=== PATIENT | male | born 1970 | race Hispanic/Latino ===

== ENCOUNTER 2021-07-21 22:35 | Emergency (ER) | payer SELFPAY ==
[~2021-07-21] VITALS: Ht 182.9 cm; Wt 131.5 kg
[2021-07-21 23:24] LABS: APPEARANCE,URINE Clear (CLEAR); BILIRUBIN,URINE Negative (NEGATIVE); COLOR,URINE Yellow (YELLOW); GLUCOSE, URINE (UA) 500 mg/dL (NEGATIVE); KETONES,URINE Trace mg/dL (NEGATIVE); LEUKOCYTE ESTERASE ,URINE Moderate (NEGATIVE); NITRATE,URINE Negative (NEGATIVE); OCCULT BLOOD,URINE Trace (NEGATIVE); PH,URINE 5.5 (5.0-8.0); PROTEIN,URINE Negative (NEGATIVE)
[2021-07-21 23:46] LABS: BACTERIA,URINE Few /HPF (None Seen); MUCUS,URINE Rare LPF (None Seen); SQUAMOUS EPITHELIAL CELL,UR Moderate /HPF (0-2); YEAST,URINE BUDDING None Seen /HPF (None Seen)
[2021-07-21] MEDS ORDERED: LIDOCAINE HCL 2% JELLY 5 ML ONE (23:55)
[2021-07-21] MEDS ORDERED: MORPHINE 4 MG SYG ONE (23:56)
[2021-07-21] MEDS ORDERED: ONDANSETRON ODT 4MG TAB ONE (23:56)
[2021-07-22] MEDS ORDERED: LIDOCAINE HCL 2% JELLY 5 ML TP SCH
[2021-07-22] MEDS ORDERED: ONDANSETRON ODT 4MG TAB SL ONE
[2021-07-22 00:29] LABS: CREATININE 1.2 mg/dL (0.5-1.5); POTASSIUM 4.1 mmol/L (3.5-5.1)
[2021-07-22 00:33] LABS: ALBUMIN 3.2 g/dL (3.5-5.0); BILIRUBIN,TOTAL 0.3 mg/dL (0.2-1.0); CRP QUANTITATIVE 7.2 mg/L (0.00-9.0); MAGNESIUM 1.9 mg/dL (1.80-2.40); TOTAL PROTEIN, SERUM 6.9 g/dL (6.0-8.3)
[2021-07-22 00:40] LABS: BASOPHILS % (AUTO) 0.7 % (0.0-5.0); EOSINOPHILS % (AUTO) 6.4 % (0.0-8.0); HEMATOCRIT 43.3 % (42-54); MEAN CORPUSCULAR HEMOGLOBIN 29.3 pg (27.0-33.0); MEAN CORPUSCULAR HGB CONC 33.3 g/dL (32.0-36.0); MEAN CORPUSCULAR VOLUME 88.2 fL (79-99); MONOCYTES % (AUTO) 6.7 % (3.0-13.0); NEUTROPHILS % (AUTO) 53.9 % (40.0-77.0); PLATELET COUNT (AUTO) 231 K/uL (130-400); RED BLOOD CELL COUNT(AUTO) 4.91 MIL/uL (4.50-6.20); RED CELL DISTRIBUTION WIDTH 13.5 % (11.0-15.5); WHITE BLOOD COUNT (AUTO) 7.5 K/uL (4.8-10.8)
[2021-07-22] MEDS ORDERED: MORPHINE 4 MG SYG ONE (01:30)
[2021-07-22] MEDS ORDERED: MORPHINE 4 MG SYG IV ONE ×2 (01:30)
[2021-07-22] MEDS ORDERED: FLUCONAZOLE 400 MG/NS 200 ML 200 ML IV STA (01:43)
[2021-07-22] MEDS ORDERED: LEVOFLOXACIN 750 MG TABLET PO SCH (02:00)
[2021-07-22] MEDS ORDERED: LEVO750T46 PO (02:16)
[2021-07-22] MEDS ORDERED: FLUC200T PO (02:16)
[2021-07-22] MEDS ORDERED: LEVOFLOXACIN 500 MG TABLET ONE (02:24)
[2021-07-22] MEDS ORDERED: FLUCONAZOLE 100 MG TAB ONE (02:26)
[2021-07-22] MEDS ORDERED: FLUCONAZOLE 100 MG TAB PO ONE (02:30)
[2021-07-22 02:34] VITALS: BP 133/98
== END 2021-07-22 03:23 | disposition home or self-care (01) ==
LOC: EDH 22:35
DX: N47.6 Balanoposthitis (principal); N47.1 Phimosis; E11.9 Type 2 diabetes mellitus without complications; I10 Essential (primary) hypertension; I25.10 Atherosclerotic heart disease of native coronary artery without angina pectoris; E66.9 Obesity, unspecified; Z68.30 Body mass index [BMI] 30.0-30.9, adult; Z79.84 Long term (current) use of oral hypoglycemic drugs; Z79.899 Other long term (current) drug therapy; Z95.5 Presence of coronary angioplasty implant and graft
CPT/HCPCS: 36415; 51702; 80053; 81001; 83735; 85025; 86140; 87088; 96374; 96376; 99284; J2270 ×2; 96375; J1450

== ENCOUNTER 2021-09-03 21:20 | Emergency (ER) | payer SELFPAY ==
[~2021-09-03] VITALS: Ht 182.9 cm; Wt 127.0 kg
[~2021-09-03 21:20] MED LIST: FLUC200T PO; LEVO750T46 PO
[2021-09-03 22:05] VITALS: BP 138/62
== END 2021-09-03 22:06 | disposition home or self-care (01) ==
LOC: EDH 21:20
DX: Z46.6 Encounter for fitting and adjustment of urinary device (principal); E11.9 Type 2 diabetes mellitus without complications; I25.2 Old myocardial infarction
CPT/HCPCS: 99281

== ENCOUNTER 2021-09-04 01:15 | Emergency (ER) | payer SELFPAY ==
[2021-09-04 01:21] VITALS: BP 159/101
== END 2021-09-04 01:36 | disposition home or self-care (01) ==
LOC: EDH 01:15
DX: Z46.6 Encounter for fitting and adjustment of urinary device (principal); Z95.5 Presence of coronary angioplasty implant and graft
CPT/HCPCS: 99281